=== PATIENT | male | born 1955 | race African-American/Black ===

== ENCOUNTER 2019-10-04 13:06 | Inpatient (IN) | payer OTHER ==
[~2019-10-04] VITALS: Ht 177.8 cm; Wt 94.4 kg
[2019-10-04 13:55] LABS: Basophils # (auto) 0.1 10 ^3/uL (0-0.2); Basophils % (auto) 1.2 % (0.0-2.0); Eosinophils # (auto) 0 10 ^3/uL (0-0.8); Eosinophils % (auto) 0.2 % (0.0-7.0); Hematocrit 45.7 % (41.0-53.0); Hemoglobin 14.8 g/dL (13.5-17.5); Lymphocytes # (auto) 1.6 10 ^3/uL (0.4-5.4); Lymphocytes % (auto) 32.6 % (10.0-50.0); Mean Corpuscular Hemoglobin 28.1 pg (28.0-32.0); Mean Corpuscular Hgb Conc. 32.5 g/dL (32.0-36.0); Mean Corpuscular Volume 86.6 fL (80.0-100.0); Monocytes # (auto) 0.5 10 ^3/uL (0-1.3); Monocytes % (auto) 9.8 % (0.0-12.0); Neutrophils # (auto) 2.8 10 ^3/uL (1.6-8.6); Neutrophils % (auto) 56.2 % (37.0-80.0); Nucleated Red Blood Cells % 0.1 %; Platelet Count (auto) 161 10^3/uL (140-450); Red Blood Cells 5.27 10^6/uL (4.5-5.90); Red Cell Distribution Width 13.5 % (11.8-14.3); White Blood Cell 4.9 10^3/uL (4.4-10.8)
[2019-10-04 14:18] LABS: Albumin 3.7 g/dL (3.4-5.0); Calcium 9.6 mg/dL (8.5-10.1); Potassium 4.9 mmol/L (3.5-5.1)
[2019-10-04 14:22] LABS: BUN/Creatinine Ratio 11.1; Bilirubin, Total 1.4 mg/dL (0.2-1.0); Total Protein 7.8 g/dL (6.4-8.2)
[2019-10-04] MEDS ORDERED: SODIUM CHLORIDE 0.9% 1,000 ML IV ONE ×2 (15:09)
[2019-10-04] MEDS ORDERED: InsuLIN REG 1unit/0.01ml Soln (100units/ml) IV ONE (15:15)
[2019-10-04] MEDS ORDERED: ENOXAPARIN SOD 100 MG/1 ML SYRINGE SC ONE (17:45)
[2019-10-04] MEDS ORDERED: SOD CHL 0.9%/ KCL 20MEQ 1,000 ML IV SCH (19:47)
[2019-10-04] MEDS ORDERED: ACETAMINOPHEN 500 MG TAB PO PRN (20:00)
[2019-10-04] MEDS ORDERED: traMADol HCL 50 MG TAB PO PRN (20:00)
[2019-10-04] MEDS ORDERED: NITROGLYCERIN 0.4 MG SL TAB SL PRN (20:00)
[2019-10-04] MEDS: ACCU-CHEK COMFORT CURVE STRIP VI SCH (20:00)
[2019-10-04] MEDS: InsuLIN REG 1unit/0.01ml Soln (100units/ml) SC SCH (20:00)
[2019-10-04] MEDS ORDERED: MORPHINE SULF INJ 2 MG/ML SYRINGE 1ML IV PRN (20:00)
[2019-10-04] MEDS ORDERED: TEMAZEPAM 15 MG CAP PO PRN (20:00)
[2019-10-04] MEDS ORDERED: DEXTROSE (50%) 50ML SYRG IV PRN (20:00)
[2019-10-04] MEDS: SODIUM CHLORIDE 0.9% 1,000 ML IV SCH (20:30)
[2019-10-04 20:50] LABS: Amylase 38 U/L (25-115); Lipase 148 U/L (73-393); Magnesium 2.4 mg/dL (1.6-2.6)
--- NOTE | 2019-10-04 21:20 | NUR ---
Telemetry admit from ER ARTHUR BRASWELL JR admitted to Telemetry unit after SBAR received. Patient oriented to Obdulia Hammer RN primary RN, unit, room, bed, and unit policies regarding patient care and visiting hours. Patient now on continuous telemetry monitoring, tele box #29. Patient weighed by bedscale and encouraged to call if they need something. All questions and concerns addressed, patient verbalized understanding. Bed is in lowest locked position with bed rails up x2 and call light is within reach of the patient.
[2019-10-04] MEDS: INSULIN LANTUS (GLARGINE) 1 /0.01ml (100units/ml) SC SCH (22:00)
--- NOTE | 2019-10-04 22:45 | NUR ---
Diet order: Spoke with Hospitalist Toñito regarding diet order for the patient. Patient has no diet order. New order for diet received. To place order.
[2019-10-04 23:53] VITALS: BP 147/106
[2019-10-05] MEDS: ACCU-CHEK COMFORT CURVE STRIP VI SCH ×6 (00:04→20:09)
[2019-10-05] MEDS: InsuLIN REG 1unit/0.01ml Soln (100units/ml) SC SCH ×6 (00:13→20:09)
[2019-10-05 05:07] VITALS: BP 135/76
[2019-10-05] MEDS: SODIUM CHLORIDE 0.9% 1,000 ML IV SCH (05:49)
[2019-10-05] MEDS ORDERED: TAMS0.4C36 PO (06:57)
[2019-10-05] MEDS ORDERED: FINA5TAB4 PO (06:57)
[2019-10-05] MEDS ORDERED: AML5T PO (06:57)
[2019-10-05] MEDS ORDERED: ALLO300T2 PO (06:57)
--- NOTE | 2019-10-05 07:30 | NUR ---
OPENING SHIFT NOTE Assumed care of patient from shift manager RN. Patient is alert and oriented x4, no signs of distress noted. Patient was updated on the plan of care and verbalized understanding. Bed is locked, in the lowest position, side rails up x2 and call light is in reach. Patient was encouraged to call for assistance as needed.
[2019-10-05 07:59] LABS: Potassium 3.8 mmol/L (3.5-5.1)
[2019-10-05 08:06] LABS: BUN/Creatinine Ratio 16.2; Bilirubin, Total 0.9 mg/dL (0.2-1.0); Total Protein 6.5 g/dL (6.4-8.2)
[2019-10-05 09:00] VITALS: BP 137/86
[2019-10-05 09:02] LABS: Urine Bacteria NONE SEEN /hpf (None Seen); Urine Blood 1+ /uL (Negative); Urine Mucus FEW (None Seen); Urine Specific Gravity 1.017 (1.001-1.035); Urine WBC 1 /hpf (0 - 3)
[2019-10-05 09:38] LABS: Opiate Scree,Urine NEGATIVE (NEGATIVE)
[2019-10-05 09:41] LABS: Alcohol, Urine < 3.0 mg/dL (0-10); Amphetamine Screen, Urine NEGATIVE (NEGATIVE); Barbiturate Scree,Urine NEGATIVE (NEGATIVE); Benzodiazephine Screen, Urine NEGATIVE (NEGATIVE); Cannabinoid Screen, Urine NEGATIVE (NEGATIVE); Cocaine Screen, Urine NEGATIVE (NEGATIVE); Phencyclidine Screen, Urine NEGATIVE (NEGATIVE)
--- NOTE | 2019-10-05 11:12 | NUR ---
PATIENT EDUCATION Patient upset stating " I was not updated and I don't know why i have this box on me. The board said that you guys are supposed to keep me informed and i haven't been informed" Patient was reeducated on the plan of care that was discussed this morning and that the MD would be doing rounds but they can come in at any time. He was also reeducated on the tele box and it's use. He stated "yeah they told me what it is for but no one is telling me what it says." He was informed that his tele box readings are showing normal sinus rhythm in the 70-80, he was also informed that until the MD sees him the plan of care is to monitor his blood sugar, administer the IV fluids and to monitor his vitals. Patient verbalized understanding.
--- NOTE | 2019-10-05 12:26 | NUR ---
WAYNE AT BEDSIDE Updated on the patient status. Plan of care was discussed with the patient. New orders received to discontinue IV fluids. Per MD patient is not stable to transfer to [place].
--- NOTE | 2019-10-05 12:36 | NUR ---
JANEL AT BEDSIDE Updated on the patient status, Plan of care was discussed with the patient. No new orders received.
[2019-10-05] MEDS ORDERED: TAMSULOSIN HYDROCHLORIDE 0.4 MG CAP PO ONE (12:45)
[2019-10-05] MEDS ORDERED: amLODIPine BESYLATE 5 MG TAB PO ONE (12:45)
[2019-10-05] MEDS ORDERED: ALLOPURINOL 300 MG TAB PO ONE (12:45)
[2019-10-05 13:00] VITALS: BP 136/97
--- NOTE | 2019-10-05 13:10 | NUR ---
CALLED FAMILY duc Carrera was called back to update on patient status. After verification of the password she was updated on the patient status and the plan of care. All questions answered.
[2019-10-05] MEDS: GABAPENTIN 300 MG CAP PO SCH ×2 (14:03→22:20)
--- NOTE | 2019-10-05 14:28 | NUR ---
IV insertion IV access obtained, via clean sterile technique by inserting 20 gauge catheter at Right forearm after 2 attemptS. IV secured properly. No trauma to site. Patient tolerated well. IV to the left AC discontinued with catheter intact, pressure dressing applied.
--- NOTE | 2019-10-05 14:28 | NUR ---
1420 10/05/19 - Contacted [employer] at [phone], requesting authorization for continued inpatient stay. Spoke with legal research analyst Jagjit who stated clinicals were under review, authorization pending complete review, Jagjit provided reference number [id number].
[2019-10-05] MEDS ORDERED: IOHEXOL 350 MG/ML 100ML IJ ONE (15:31)
--- NOTE | 2019-10-05 16:08 | NUR ---
PATIENT TAKEN TO CT via wheelchair accompanied by tech, no signs of distress noted on departure.
--- NOTE | 2019-10-05 16:19 | NUR ---
PATIENT BACK FROM CT No signs of distress noted, patient resting in bed.
[2019-10-05 17:00] VITALS: BP 135/80
--- NOTE | 2019-10-05 17:05 | NUR ---
CALLED MD BLACK Regarding patient CT results of pulmonary embolism in the left upper lobe. New order received for Lovenox 90mg SC q12h first dose now.
[2019-10-05] MEDS: ENOXAPARIN SOD 100 MG/1 ML SYRINGE SC SCH ×2 (17:28→22:20)
--- NOTE | 2019-10-05 19:30 | NUR ---
Opening Shift Note Received report from Yelena MCDANIELS. Assumed care of patient, awake and alert. No S/S of distress/SOB or pain. Instructed on POC and to call for assist PRN, will continue to monitor for changes Q1hr and PRN.
[2019-10-05 22:00] VITALS: BP 120/81
[2019-10-05] MEDS: INSULIN LANTUS (GLARGINE) 1 /0.01ml (100units/ml) SC SCH (22:24)
[2019-10-06] MEDS: ACCU-CHEK COMFORT CURVE STRIP VI SCH ×7 (03:51→23:58)
[2019-10-06] MEDS: InsuLIN REG 1unit/0.01ml Soln (100units/ml) SC SCH ×7 (03:52→23:55)
[2019-10-06 05:00] VITALS: BP 140/99
[2019-10-06] MEDS: GABAPENTIN 300 MG CAP PO SCH ×3 (06:15→22:10)
[2019-10-06 09:00] VITALS: BP 137/92
[2019-10-06] MEDS: amLODIPine BESYLATE 5 MG TAB PO SCH (09:49)
[2019-10-06] MEDS: ENOXAPARIN SOD 100 MG/1 ML SYRINGE SC SCH ×2 (09:49→22:10)
[2019-10-06] MEDS: ALLOPURINOL 300 MG TAB PO SCH (09:49)
[2019-10-06] MEDS: FINASTERIDE 5 MG TAB PO SCH (11:17)
[2019-10-06 13:00] VITALS: BP 137/89
[2019-10-06 17:00] VITALS: BP 117/84
[2019-10-06] MEDS: TAMSULOSIN HYDROCHLORIDE 0.4 MG CAP PO SCH (17:53)
[2019-10-06 22:00] VITALS: BP 128/88
[2019-10-06] MEDS: INSULIN LANTUS (GLARGINE) 1 /0.01ml (100units/ml) SC SCH (22:09)
[2019-10-07] MEDS: ACCU-CHEK COMFORT CURVE STRIP VI SCH ×5 (04:00→21:30)
[2019-10-07] MEDS: InsuLIN REG 1unit/0.01ml Soln (100units/ml) SC SCH ×5 (04:52→21:30)
[2019-10-07 05:00] VITALS: BP 129/80
[2019-10-07] MEDS: GABAPENTIN 300 MG CAP PO SCH ×3 (06:17→21:35)
--- NOTE | 2019-10-07 07:30 | NUR ---
Opening Shift Note Assumed care of patient, awake and alert. No S/S of distress/SOB or pain. Instructed on POC and to call for assist PRN, will continue to monitor for changes Q1hr and PRN. Fall precautions in place per safety protocol.
[2019-10-07 09:00] VITALS: BP 144/83
--- NOTE | 2019-10-07 09:00 | NUR ---
Hospitalist MD Oneal at bedside, aware of patient status. MD Oneal spoke with patients and patient regarding POC. All questions and concerns addressed. Per MD Oneal, patient is a possible D/C tomorrow. Will cont to monitor patient.
[2019-10-07] MEDS: FINASTERIDE 5 MG TAB PO SCH (10:37)
[2019-10-07] MEDS: amLODIPine BESYLATE 5 MG TAB PO SCH (10:38)
[2019-10-07] MEDS: ALLOPURINOL 300 MG TAB PO SCH (10:38)
[2019-10-07] MEDS: DULoxetine HCL 30 MG CAP PO SCH (10:38)
[2019-10-07] MEDS: ENOXAPARIN SOD 100 MG/1 ML SYRINGE SC SCH ×2 (10:38→21:36)
--- NOTE | 2019-10-07 12:50 | NUR ---
Est energy needs 7301-0294 kcal (20-23 kcal/kg Bw 93.1kg) Est protein needs 74-93g (0.8-1g/kg BW 93.1kg) will reassess prn. Addendum: 10/07/19 at [address] Amended: Links added.
[2019-10-07 13:00] VITALS: BP 136/98
--- NOTE | 2019-10-07 14:30 | NUR ---
SVT Patient had 5 beats of SVT. Patient assessed and was asymptomatic. Will cont to monitor patient.
[2019-10-07 17:00] VITALS: BP 136/90
[2019-10-07] MEDS: TAMSULOSIN HYDROCHLORIDE 0.4 MG CAP PO SCH (17:59)
--- NOTE | 2019-10-07 19:45 | NUR ---
Opening Shift Note Assumed care of patient, awake and alert. No S/S of distress/SOB or pain. Instructed on POC and to call for assist PRN, patient verbalized understanding. Bed in lowest position, call light within reach, will continue to monitor for changes Q1hr and PRN.
[2019-10-07] MEDS: INSULIN LANTUS (GLARGINE) 1 /0.01ml (100units/ml) SC SCH (21:30)
[2019-10-07 22:00] VITALS: BP 131/92
[2019-10-08] MEDS: InsuLIN REG 1unit/0.01ml Soln (100units/ml) SC SCH ×5 (01:00→16:41)
[2019-10-08] MEDS: ACCU-CHEK COMFORT CURVE STRIP VI SCH ×5 (01:00→16:00)
[2019-10-08] MEDS: PROMETHAZINE HCL 25 MG/ML 1ML IV PRN ×2 (04:41→08:23)
[2019-10-08 05:00] VITALS: BP 126/91
[2019-10-08] MEDS: GABAPENTIN 300 MG CAP PO SCH ×2 (05:52→14:44)
--- NOTE | 2019-10-08 08:00 | NUR ---
Received pt resting in bed, call light within reach, pt reported to have nausea, will medicate pt as order,
[2019-10-08 09:00] VITALS: BP 160/89
[2019-10-08] MEDS ORDERED: APIXABAN 5 MG TAB PO SCH (10:00)
--- NOTE | 2019-10-08 10:15 | NUR ---
Dr. Oneal at bed side to see pt, doctor discussed pt's plan of care and d/c instructions with pt and with pt's over the phone.
[2019-10-08 10:32] VITALS: BP 144/83
[2019-10-08] MEDS: amLODIPine BESYLATE 5 MG TAB PO SCH (10:44)
[2019-10-08] MEDS: ALLOPURINOL 300 MG TAB PO SCH (10:44)
[2019-10-08] MEDS: FINASTERIDE 5 MG TAB PO SCH (10:44)
[2019-10-08] MEDS: DULoxetine HCL 30 MG CAP PO SCH (10:44)
--- NOTE | 2019-10-08 11:31 | NUR ---
Discharge instructions given as ordered. Encourage to follow up with PMD as instructed. All questions and concerns addressed. Called pt's Debi at [phone] to give the discharge instructions. Patient verbalized understanding. Medication reconciliation form completed and copy given to patient. No home medications held in Pharmacy, and no needed vaccines to be given. Pt still feels drowsy due to phenergan, pt will wait until he feels able to drive home.
[2019-10-08 13:00] VITALS: BP 133/85
--- NOTE | 2019-10-08 14:49 | NUR ---
Pt reports to still feel dizzy after the phenergan, pt denies nausea at this time, pt will wait more before he can drive home.
--- NOTE | 2019-10-08 16:26 | NUR ---
1550 10/08/19- Contacted [facility] at [phone], requesting authorization for continued inpatient stay. Spoke with epic cadence analyst Misty who stated patient is authorized for continued inpatient until tomorrow 1000.
[2019-10-08 17:00] VITALS: BP 145/96
--- NOTE | 2019-10-08 17:00 | NUR ---
Pt reported to feel ready for discharge, and not dizzy anymore, d/c tele box and sent back to ICU tele monitor unit, d/c IV site, IV catheter intact, applied pressure dressing, pt will get dress.
--- NOTE | 2019-10-08 17:40 | NUR ---
Patient taken to vehicle via wheelchair with all personal belongings, accompanied by medical staff. No distress noted at time of departure.
[2019-10-08] MEDS: TAMSULOSIN HYDROCHLORIDE 0.4 MG CAP PO SCH (18:00)
== END 2019-10-08 17:40 | disposition home or self-care (01) | DRG 637 ==
LOC: ER 13:06 → TELE-CENTR 13:07
PROVIDERS: ADMIT Internal Medicine; ATTEND Family Medicine
DX: E11.65 Type 2 diabetes mellitus with hyperglycemia (principal); I26.99 Other pulmonary embolism without acute cor pulmonale; E87.1 Hypo-osmolality and hyponatremia; E87.3 Alkalosis; J98.11 Atelectasis; E11.40 Type 2 diabetes mellitus with diabetic neuropathy, unspecified; E66.9 Obesity, unspecified; I10 Essential (primary) hypertension; J44.9 Chronic obstructive pulmonary disease, unspecified; M10.9 Gout, unspecified; N28.1 Cyst of kidney, acquired; N32.89 Other specified disorders of bladder; N40.1 Benign prostatic hyperplasia with lower urinary tract symptoms; C61 Malignant neoplasm of prostate; Z79.4 Long term (current) use of insulin; Z79.899 Other long term (current) drug therapy; Z79.01 Long term (current) use of anticoagulants; Z91.14 Patient's other noncompliance with medication regimen; Z91.19 Patient's noncompliance with other medical treatment and regimen; Z68.29 Body mass index [BMI] 29.0-29.9, adult
CPT/HCPCS: 36415; 71046; 71275; 72131; 76775; 78582; 80053; 80061; 80307; 81001; 82150; 82550; 82962; 83036; 83690; 83735; 84154; 85025; 85379; 93926; 93970; 96372; 96374; 96375; G0378; J1815